=== PATIENT | female | born 1965 | race African-American/Black ===

== ENCOUNTER 2018-11-26 04:19 | Emergency (ER) | payer MEDICARE, MEDICAID ==
[~2018-11-26] VITALS: Ht 167.6 cm; Wt 79.4 kg
[2018-11-26 04:39] VITALS: BP 190/70
[2018-11-26] MEDS ORDERED: ERY-TAB500 MG PO (04:41)
== END 2018-11-26 04:48 | disposition home or self-care (01) ==
LOC: M.ERS 04:19
DX: K02.9 Dental caries, unspecified (principal)

== ENCOUNTER 2019-02-08 06:32 | Emergency (ER) | payer MEDICARE, MEDICAID ==
[~2019-02-08] VITALS: Ht 167.6 cm; Wt 77.1 kg
[~2019-02-08 06:32] MED LIST: ERY-TAB500 MG PO
[2019-02-08 07:07] LABS: URINE BILIRUBIN NEGATIVE (Negative); URINE BLOOD NEGATIVE (Negative); URINE CLARITY CLEAR; URINE COLOR DARK YELLOW; URINE GLUCOSE-RANDOM 3+ (Negative); URINE KETONES TRACE (Negative); URINE LEUKOCYTES-REFLEX NEGATIVE (Negative); URINE NITRITE-REFLEX NEGATIVE (Negative); URINE PROTEIN 1+ (Negative); URINE SPECIFIC GRAVITY 1.025 (1.005-1.030); URINE UROBILINOGEN 0.2 E.U./dl (0.2-1.0)
[2019-02-08] MEDS ORDERED: TORADOL 10 MG T10 MG PO (07:16)
[2019-02-08 07:50] VITALS: BP 182/99
== END 2019-02-08 07:50 | disposition home or self-care (01) ==
LOC: M.ERS 06:32
PROVIDERS: Emergency Medicine Emergency Medical Services
DX: R10.9 Unspecified abdominal pain (principal); I10 Essential (primary) hypertension; E11.9 Type 2 diabetes mellitus without complications; K21.9 Gastro-esophageal reflux disease without esophagitis; Z90.710 Acquired absence of both cervix and uterus

== ENCOUNTER 2019-05-07 22:28 | Emergency (ER) | payer MEDICARE ==
[~2019-05-07] VITALS: Ht 167.6 cm; Wt 72.6 kg
[~2019-05-07 22:28] MED LIST changes: +TORADOL 10 MG T10 MG PO
[2019-05-07 22:47] VITALS: BP 222/101
[2019-05-07] MEDS ORDERED: NEXIUM40 MG PO (22:52)
[2019-05-07] MEDS ORDERED: METFORMIN HCL500 MG PO (22:52)
[2019-05-07] MEDS ORDERED: HUMALOG100 UNIT/1 SUBQ (22:53)
[2019-05-07] MEDS ORDERED: BLOOD PRESSURE (22:54)
[2019-05-07] MEDS ORDERED: ACETAMINOPHEN-1 EAC1 PO (23:10)
[2019-05-07] MEDS ORDERED: CLEOCIN HCL150 MG PO (23:10)
[2019-05-07] MEDS ORDERED: PHENERGAN 25 MG25 M1 PO (23:11)
== END 2019-05-07 23:23 | disposition home or self-care (01) ==
LOC: M.ERS 22:28
DX: K08.89 Other specified disorders of teeth and supporting structures (principal); R22.0 Localized swelling, mass and lump, head; I10 Essential (primary) hypertension; E11.9 Type 2 diabetes mellitus without complications; K21.9 Gastro-esophageal reflux disease without esophagitis; F17.200 Nicotine dependence, unspecified, uncomplicated; Z90.711 Acquired absence of uterus with remaining cervical stump; Z79.4 Long term (current) use of insulin; Z88.2 Allergy status to sulfonamides; Z88.0 Allergy status to penicillin

== ENCOUNTER 2019-06-19 00:20 | Emergency (ER) | payer OTHER, MEDICARE ==
[~2019-06-19] VITALS: Ht 167.6 cm; Wt 74.8 kg
[~2019-06-19 00:20] MED LIST changes: +ACETAMINOPHEN-1 EAC1 PO; +BLOOD PRESSURE; +CLEOCIN HCL150 MG PO; +HUMALOG100 UNIT/1 SUBQ; +METFORMIN HCL500 MG PO; +NEXIUM40 MG PO; +PHENERGAN 25 MG25 M1 PO
[2019-06-19] MEDS ORDERED: IBUPROFEN 800800 MG PO (00:51)
[2019-06-19] MEDS ORDERED: FLEXERIL PO (00:51)
[2019-06-19] MEDS ORDERED: ULTRAM 50MG TAB50 MG PO (01:01)
[2019-06-19 01:04] VITALS: BP 181/95
== END 2019-06-19 01:04 | disposition home or self-care (01) ==
LOC: M.ERS 00:20
DX: S16.1XXA Strain of muscle, fascia and tendon at neck level, initial encounter (principal); I10 Essential (primary) hypertension; E11.9 Type 2 diabetes mellitus without complications; K21.9 Gastro-esophageal reflux disease without esophagitis; Z90.711 Acquired absence of uterus with remaining cervical stump; Z88.0 Allergy status to penicillin; Z88.2 Allergy status to sulfonamides; V89.2XXA Person injured in unspecified motor-vehicle accident, traffic, initial encounter; Y92.410 Unspecified street and highway as the place of occurrence of the external cause; Y93.89 Activity, other specified; Y99.8 Other external cause status

== ENCOUNTER 2019-11-03 06:53 | Inpatient (IN) | payer OTHER, MEDICAID ==
[~2019-11-03] VITALS: Ht 167.6 cm; Wt 77.1 kg
[~2019-11-03 06:53] MED LIST changes: +FLEXERIL PO; +IBUPROFEN 800800 MG PO; +ULTRAM 50MG TAB50 MG PO
[2019-11-03 07:12] VITALS: BP 212/83
--- NOTE | 2019-11-03 07:16 | NUR ---
DR. RICHARD NOTIFIED OF PT SYMPTOMS AT 0704.
[2019-11-03 07:40] LABS: ABSOLUTE BASOPHILS 0.1 thou/uL (0.0-0.2); ABSOLUTE EOSINOPHILS 0.1 thou/uL (0.0-0.7); ABSOLUTE LYMPHOCYTES 1.7 thou/uL (0.8-5.3); ABSOLUTE MONOCYTES 0.6 thou/uL (0.0-1.2); ABSOLUTE NEUTROPHILS 9.4 thou/uL (1.6-8.1); BASOPHILS 0.5 %; EOSINOPHILS 0.7 %; HEMATOCRIT 42.6 % (37.0-47.0); HEMOGLOBIN 14.8 gm/dL (12.0-15.0); LYMPHOCYTES 14.5 %; MCH 30.2 pg (26.0-34.0); MCHC 34.6 g/dL (28.0-37.0); MCV 87.4 fL (80.0-100.0); MONOCYTES 4.8 %; MPV 7.5 fl. (7.2-11.1); NUCLEATED RBCS 0 /100WBC; PLATELET COUNT* 385 thou/uL (150-400); POLYS 79.5 %; RBC 4.88 mil/uL (4.20-5.00); RDW-CV 13.5 % (10.5-14.5); WBC 11.9 thou/uL (4.0-11.0)
[2019-11-03 07:48] LABS: CALCIUM 8.8 mg/dL (8.5-10.1); CREATININE 0.7 mg/dL (0.6-1.3); POTASSIUM 3.7 mmol/L (3.5-5.1)
[2019-11-03 07:51] LABS: APTT 28.5 Seconds (25.0-31.3)
[2019-11-03 07:53] LABS: ALBUMIN 3.5 g/dL (3.4-5.0); TOTAL BILIRUBIN 0.3 mg/dL (<0.1-1.0); TOTAL PROTEIN 8.1 g/dL (6.4-8.2)
[2019-11-03 08:36] LABS: URINE BILIRUBIN NEGATIVE (Negative); URINE BLOOD NEGATIVE (Negative); URINE CLARITY CLEAR; URINE COLOR YELLOW; URINE GLUCOSE-RANDOM 2+ (Negative); URINE KETONES NEGATIVE (Negative); URINE LEUKOCYTES-REFLEX NEGATIVE (Negative); URINE PROTEIN NEGATIVE (Negative); URINE SPECIFIC GRAVITY 1.025 (1.005-1.030); URINE UROBILINOGEN 0.2 E.U./dl (0.2-1.0)
[2019-11-03 08:38] LABS: URINE NITRITE-REFLEX POSITIVE (Negative)
[2019-11-03 08:42] LABS: BACTERIA-REFLEX >30 Many /HPF (None Seen); CASTS None Seen /LPF (None Seen); CRYSTALS None Seen /LPF (None Seen); MUCUS None Seen strn/LPF (None Seen); SQUAMOUS 0-3 Few /LPF (0-3); URINE RBC 0-2 Rare /HPF (0-2); URINE WBC-REFLEX 6-15 Few /HPF (0-5)
[2019-11-03 11:38] VITALS: BP 161/80
--- NOTE | 2019-11-03 11:46 | EKG ---
[place] [address] ELECTROCARDIOGRAM REPORT Name: RENA PARISH Room: [place] [address] ADM IN .R.#: [id number] Admission: 11/03/19 Attend Phys: Devendra moore Sa Discharge: Date of : 67 Date of Service: 11/03/19 0724 Report #: [id number] THIS REPORT FOR: //name// [facility] ED Test Date: 2019-11-03 Test Time: 07:24:43 Pat Name: RENA PARISH Department: Room: [facility] Gender: F Vocational Trainer: : 1965 Requested By: Marianne Michel Order Number: [id number] MD: Mohit Hastings Measurements Intervals [place] Rate: 81 P: 48 ME: 142 QRS: 17 QRSD: 90 T: 67 QT: 403 QTc: 468 Interpretive Statements Sinus rhythm Probable LVH with secondary repol abnrm No previous ECG available for comparison Electronically Signed On 11-03-2019 11:45:51 TRAFFIC ENGINEERING TECHNICIAN by Mohit Hastings [email or web address] <ELECTRONICALLY SIGNED> By: Mohit Hastings MD, [facility] 11/03/19 1145 0724 0724 Mohit Hastings MD, [facility] /EPI
[2019-11-03 11:50] LABS: CHOLESTEROL 272 mg/dL (<200); HDL CHOLESTEROL 35 mg/dL (>40); LDL CHOLESTEROL 179 mg/dL (<100); TC:HDL 7.8 Ratio (Not establshd); TRIGLYCERIDE 290 mg/dL (<150); VLDL 58 mg/dL (<40)
[2019-11-03 11:51] LABS: SERUM ASSESSMENT Clear
[2019-11-03 16:01] VITALS: BP 169/72
[2019-11-03 16:31] VITALS: BP 154/100
--- NOTE | 2019-11-03 19:02 | NUR ---
PATIENT ADMITTED FROM ER VOICE SLURRED NOT MOVING RT SIDE NOW MOVES WITH PURPOSE. ASKING TO GET OUT OF BED. SWALLOW EVAL DONE. PT STILL SLURRING SPEACH. PROGRESSING.
--- NOTE | 2019-11-03 19:49 | 2DMMODE ---
[place] [address] 2 D/M-MODE ECHOCARDIOGRAM Name: RENA PARISH Room: [address] IN [facility]#: [id number] Admission: 11/03/19 Attend Phys: Devendra moore Sa Discharge: Date of : 67 Date of Service: 11/03/191947 Report #: [id number] THIS REPORT FOR: cc: Arvind Osullivan,Arvind Juarez,Jackson Mckeon MD [facility] ~ APPROVED REPORT Study performed: 11/03/2019 14:23:58 EXAM: Comprehensive 2D, Doppler, and color-flow Echocardiogram Patient Location: In-Patient Room #: 003 Status: routine BSA: 1.77 HR: 72 bpm BP: 174/73 mmHg Rhythm: NSR Other Information Study Quality: Good Indications CVA/TIA Echo Enhancing Agent Indication: Rule out Shunt Agent(s) / Amount(s) Used: Agitated Saline 10 cc 2D Dimensions IVSd: 11.65 (7-11mm) LVOT Diam: 20.08 (18-24mm) LVDd: 43.85 mm PWd: 9.62 (7-11mm) Ascending Ao: 35.69 (22-36mm) LVDs: 22.58 (25-40mm) Aortic Root: 35.84 mm Volumes Left Atrial Volume (Systole) LA ESV Index: 27.30 mL/m2 Aortic Valve AoV Peak Sudeep.: 1.12 m/s AO Peak Gr.: 5.06 mmHg LVOT Max P.68 mmHg AO Mean Gr.: 2.71 mmHg LVOT Mean P.53 [place] [address] 2 D/M-MODE ECHOCARDIOGRAM Name: RENA PARISH Room: [address] IN M.R.#: [id number] Admission: 11/03/19 Attend Phys: Devendra moore Sa Discharge: Date of : 67 Date of Service: 11/03/191947 Report #: [id number] LVOT Max V: 1.19 m/s AO V2 VTI: 23.02 cm LVOT Mean V: 0.73 m/s CHARLENE (VTI): 3.23 cm2 LVOT V1 VTI: 23.49 cm Mitral Valve E/A Ratio: 1.02 MV Decel. Time: 269.20 ms MV E Max Sudeep.: 0.77 m/s MV PHT: 78.07 ms MVA (PHT): 2.82 cm2 TDI E/Lateral E': 8.56 E/Medial E': 12.83 Medial E' Sudeep.: 0.06 m/s Lateral E' Sudeep.: 0.09 m/s Left Ventricle The left ventricle is normal size. There is normal LV segmental wall motion. There is normal left ventricular wall thickness. Left ventricular systolic function is normal. LVEF is 65-70%. Transmitral Doppler flow pattern suggests impaired LV relaxation. Right Ventricle The right ventricle is normal size. The right ventricular systolic function is normal. Atria The left atrium size is normal. The interatrial septum is intact with no evidence for an atrial septal defect. The right atrium size is normal. Aortic Valve The aortic valve is normal in structure. No aortic regurgitation is present. There is no aortic valvular stenosis. Mitral Valve The mitral valve is normal in structure. Trace mitral regurgitation. No evidence of mitral valve stenosis. Tricuspid Valve The tricuspid valve is normal in structure. Trace tricuspid regurgitation. Unable to assess PA pressure. Pulmonic Valve The pulmonary valve is normal in structure. There is no pulmonic [place] [address] 2 D/M-MODE ECHOCARDIOGRAM Name: RENA PARISH Room: [address] IN ..#: [id number] Admission: 11/03/19 Attend Phys: Devendra moore Sa Discharge: Date of : 67 Date of Service: 11/03/19 194 Report #: [id number] Great Vessels The aortic root is normal in size. IVC is normal in size and collapses >50% with inspiration. Pericardium There is no pericardial effusion. <Conclusion> The left ventricle is normal size. There is normal left ventricular wall thickness. Left ventricular systolic function is normal. LVEF is 65-70%. Transmitral Doppler flow pattern suggests impaired LV relaxation. The interatrial septum is intact with no evidence for an atrial septal defect. Trace mitral regurgitation. Trace tricuspid regurgitation. <ELECTRONICALLY SIGNED> By: Jackson Kaminski MD, FACC 11/03/191947 47 47 Jackson Kaminski MD, FACC /INF
[2019-11-04 02:07] LABS: GLYCOHEMOGLOBIN (HGB A1C) 10.6 % (4.8-5.6)
--- NOTE | 2019-11-04 06:49 | NUR ---
PROGRESSING TOWARDS GOALS, AWAKE, ALERT, AND CONVERSATIVE THIS AM, FORGETFUL EASILY REORIENTED TO PLACE, AND SITUATION, REQUESTING AM MEAL, REMAINS NPO PER ORDER, SITTING UP SIDE OF BED WITHOUT ASSIST, BED ALARM ON FOR SAFETY, NO ADVERSE EFFECTS IV ABT'S NOTED, FSBS N4PFBDE PER ORDER, X HUMALOG 3UNITS SQ PER ORDER LOW DOSE SLIDING SCALE REGIME, RESP EVEN AND NONLAOBRED, SAO2 =>96% RA, NSR TRACING SPRINKLER TENDER, UPATED PLAN OF CARE VIA TELEPHONE, DENIES PAIN OR DISCOMFORT, INSTRUCTED USE OF CALL LIGHT FOR NEEDS, WANTS, OOB, OR ANY CHANGE IN CONDITION, USING TV REMOTE WITHOUT DIFFICULTY. BED REMAINS IN LOW AND LOCKED POSITON, SAFETY MAINTAINED.
[2019-11-04 08:39] LABS: ABSOLUTE EOSINOPHILS 0.2 thou/uL (0.0-0.7); ABSOLUTE LYMPHOCYTES 3.1 thou/uL (0.8-5.3); ABSOLUTE MONOCYTES 0.5 thou/uL (0.0-1.2); ABSOLUTE NEUTROPHILS 3.6 thou/uL (1.6-8.1); BASOPHILS 0.6 %; EOSINOPHILS 2.6 %; HEMATOCRIT 38.3 % (37.0-47.0); HEMOGLOBIN 13.1 gm/dL (12.0-15.0); MCH 29.9 pg (26.0-34.0); MCHC 34.1 g/dL (28.0-37.0); MCV 87.7 fL (80.0-100.0); MONOCYTES 6.4 %; MPV 7.8 fl. (7.2-11.1); NUCLEATED RBCS 0 /100WBC; PLATELET COUNT* 345 thou/uL (150-400); POLYS 48.4 %; RBC 4.37 mil/uL (4.20-5.00); RDW-CV 13.4 % (10.5-14.5); WBC 7.4 thou/uL (4.0-11.0)
[2019-11-04 08:45] LABS: CALCIUM 8.3 mg/dL (8.5-10.1); CREATININE 0.6 mg/dL (0.6-1.3); POTASSIUM 3.3 mmol/L (3.5-5.1)
--- NOTE | 2019-11-04 11:16 | NUR ---
CM ASSESSMENT: VISITED WITH PT IN ROOM. PARENTS ARE PRESENT. PT LIVES WITH HER EX AND HAS RECENTLY MOVED BACK TO [facility]. PT IS NORMALLY INDEPENDENT WITH ADLS AND DENIES DEFICITS FROM PREVIOUS CVA. HER MOTHER STATES THAT SHE IS SOMETIMES FORGETFUL. PT HAS REHAB CONSULT TODAY. CM WILL CONTINUE TO FOLLOW
--- NOTE | 2019-11-04 13:22 | NUR ---
PATIENT UP AT BEDSIDE TAKING PO WELL. SLIGHT WEAKNESS NOTED. VERY IMPULSIVE. DENIES DISTRESS.
[2019-11-04 14:39] VITALS: BP 168/80
[2019-11-04 15:54] VITALS: BP 197/77
[2019-11-04 20:51] VITALS: BP 158/74
[2019-11-04] MEDS ORDERED: ALPRAZOLAM 0.0.25 M1 PO (21:10)
[2019-11-04 23:28] VITALS: BP 168/85
[2019-11-05 04:58] VITALS: BP 185/92
--- NOTE | 2019-11-05 05:13 | NUR ---
PT. PROGRESSING TOWARDS GOALS. IMPULSIVE, BED ALARM ARMED. UP TO BSC STAND BY ASSIST. ALERT AND ORIENTED.
--- NOTE | 2019-11-05 09:13 | NUR ---
I have reviewed the documentation by SIRIA STERN from 11/04/19 to 11/05/19 and I concur with it. LESLIE MALDONADO
--- NOTE | 2019-11-05 10:15 | NUR ---
INT ROUNDS: PT IS TELE STATUS, ANTICIPATE MOVE TO TELE FLOOR LATER. REHAB CONSULT IN PLACE AND WORKING WITH THERAPY. WILL FOLLOW
[2019-11-05 10:57] VITALS: BP 147/74
[2019-11-05 12:32] LABS: AMP/METHAMP Negative (Negative); BARBITURATES Negative (Negative); BENZODIAZEPINES Negative (Negative); COCAINE Negative (Negative); METHADONE Negative (Negative); OPIATES Negative (Negative); PCP Negative (Negative); THC Negative (Negative)
[2019-11-05 18:13] VITALS: BP 169/79
[2019-11-05 19:25] VITALS: BP 153/64
[2019-11-06 03:57] VITALS: BP 160/83
[2019-11-06 04:08] LABS: HEMOGLOBIN 13.6 gm/dL (12.0-15.0); MCH 29.7 pg (26.0-34.0); MCHC 33.9 g/dL (28.0-37.0); MCV 87.7 fL (80.0-100.0); MPV 7.5 fl. (7.2-11.1); RBC 4.56 mil/uL (4.20-5.00); RDW-CV 13.4 % (10.5-14.5); WBC 6.8 thou/uL (4.0-11.0)
[2019-11-06 04:10] LABS: CALCIUM 8.7 mg/dL (8.5-10.1); CREATININE 0.7 mg/dL (0.6-1.3); POTASSIUM 3.6 mmol/L (3.5-5.1)
[2019-11-06] MEDS ORDERED: ASPIRIN325 PO (07:04)
[2019-11-06] MEDS ORDERED: LANTUS SUBQ (07:04)
[2019-11-06] MEDS ORDERED: LIPITOR 40 MG T40 M1 PO (07:04)
[2019-11-06] MEDS ORDERED: HUMALOG100 UNIT/1 SUBQ (07:04)
[2019-11-06] MEDS ORDERED: COZAAR 50 MG TA50 M1 PO (07:04)
[2019-11-06 07:35] VITALS: BP 170/77
--- NOTE | 2019-11-06 08:24 | NUR ---
ORDERS NOTED FOR DC TO REHAB VS SNF. REHAB CONSULT WAS PLACED YESTERDAY WITH CALL TO [facility]. NO CONSULT DICATED YET. MESSAGE TO [facility] TO CHECK ON STATUS. WILL NEED INSURANCE AUTH PRIOR TO EITHER TYPE OF PLACEMENT
[2019-11-06 11:03] VITALS: BP 160/83
[2019-11-06 11:12] VITALS: BP 160/83
--- NOTE | 2019-11-06 12:07 | NUR ---
THIS HYDRAULIC HAMMER OPERATOR ASSUMED CARE OF PT AT 0700 PT PROGRESSED TOWARD GOALS AND DISCHARGED AT 1155 F/U APPT SCHEDULED 11/19/[address] ZABALA PT SENT HOME WITH TELEY RECORDER X 30 DAYS HAD INSTRUCTIONS AND CARDIO NUMBER FOR ANY QUESTIONS ALL BELONGINGS PACKED AND SENT WITH PT INCLUDING SCRIPTS EDUCATION AND SPOKE WITH HOME HEALTH LEFT VIA OWN TRANSPORTATION WITH SPOUSE PT REFUSED WHEELCHAIR AND WANTED TO WALK OUT ACCOMPANIED BY NURSING
--- NOTE | 2019-11-06 14:58 | NUR ---
I have reviewed the documentation by SIRIA STERN from 11/06/19 to 11/06/19 and I concur with it. LESLIE MALDONADO
== END 2019-11-06 11:55 | disposition home health service (06) | DRG 65 ==
LOC: M.ERS 06:53 → M.ICU 09:30 → M.TBA-ER 09:30 → M.ICU 12:00
PROVIDERS: Personal Emergency Response Attendant; Psychiatry & Neurology Neurology; ADMIT Family Medicine
DX: I63.9 Cerebral infarction, unspecified (principal); G81.91 Hemiplegia, unspecified affecting right dominant side; N39.0 Urinary tract infection, site not specified; I10 Essential (primary) hypertension; E11.65 Type 2 diabetes mellitus with hyperglycemia; I16.0 Hypertensive urgency; E78.5 Hyperlipidemia, unspecified; R47.81 Slurred speech; F41.9 Anxiety disorder, unspecified; K21.9 Gastro-esophageal reflux disease without esophagitis; Z90.711 Acquired absence of uterus with remaining cervical stump; Z79.899 Other long term (current) drug therapy; Z79.4 Long term (current) use of insulin; Z88.1 Allergy status to other antibiotic agents; Z88.0 Allergy status to penicillin; Z88.2 Allergy status to sulfonamides; Z79.84 Long term (current) use of oral hypoglycemic drugs; Z91.14 Patient's other noncompliance with medication regimen; Z79.82 Long term (current) use of aspirin; Z86.73 Personal history of transient ischemic attack (TIA), and cerebral infarction without residual deficits; Z72.0 Tobacco use; Z82.3 Family history of stroke; Z82.49 Family history of ischemic heart disease and other diseases of the circulatory system

== ENCOUNTER 2021-07-01 16:19 | Emergency (ER) | payer OTHER, MEDICAID ==
[~2021-07-01] VITALS: Ht 167.6 cm; Wt 83.0 kg
--- NOTE | ~2021-07-01 | EMS ---
[address] [address] EMS Patient Care Report Name: RENA PARISH [id number] Admission: 07/01/21 Attend Phys: Discharge: 07/01/21 Date of : 67 Report #: [id number] THIS REPORT FOR: //name// Report Transmitted: 07/01/2021 20:50 EMS Care Summary LEELA DAVENPORT Incident [id number] @ 07/01/2021 15:42 Incident Location [facility] [place] [address] Patient RENA PARISH Female, 55 Years 1965 Patient Address [address] [place], [place] [id number] Patient History Cerebral infarction, unspecified,Hypertension (HTN),,Endocrine Condition - Other,Gastro-Esophageal Reflux Disease (GERD), Patient Allergies , Patient Medications insulin, isophane, Hydrochlorothiazide / Lisinopril, Lisinopril, Atorvastatin, Pantoprazole, Chief Complaint Dizziness Disposition Transported No Lights/Vivian Dispatch Reason Sick Person Transported To [facility] Narrative [facility] WAS DISPATCHED TO A FEMALE WITH SHORTNESS OF BREATH, VOMITING, LIGHTHEADEDNESS, AND WEAKNESS. ON SCENE THE PATIENT WAS JUST INSIDE OF THE [address] [address] EMS Patient Care Report Name: RENA PARISH [facility] [id number] Admission: 07/01/21 Attend Phys: Discharge: 07/01/21 Date of : 67 Report #: [id number] WAITING ROOM ON A BENCH SEAT, THERE WAS EMESIS NOTED ON THE GROUND. PATIENT WAS ALERT AND ORIENTED SPEAKING WITH THE FIREFIGHTERS. PATIENT REPORTED THAT HE WAS WALKING WHEN SHE STARTED TO GET SUPER LIGHTHEADED. patient WAS FORCED TO SIT DOWN BY THE MAN THAT SHE WAS WITH ON THEIR DATE. PATIENT THREW UP AND THEY CALLED 911. THE PATIENTS VITALS WERE ASSESSED. FIRE FIGHTERS WERE UNABLE TO GET A BLOOD PRESSURE. THE PATIENT WAS HELPED TO STAND UP AND WALK A FEW STEPS TO THE COT. patient TURNED AND SAT DOWN WITH NO ISSUES. patients WAS BUCKLED IN AND TAKEN TO THE AMBULANCE. PATIENT REQUESTED TO GO TO [facility]. patients DATE WAS NOTIFIED OF THE PATIENTS DECISION. THE PATIENT WHILE IN ROUTE HAD VITALS AND 12-LEAD TAKEN. AN IV WAS OBTAINED. PATIENT WAS OFFERED ZOFRAN HOWEVER SHE STATED THAT IT USUAL JUST MAKES IT A LOT WORSE, NO ZOFRAN WAS GIVEN. FLUIDS WERE ADMINISTERED. PATIENT DENIED ANY CHEST PAIN OR SHORTNESS OF BREATH. PATIENT WAS ALERT AND oriented. PATIENT WAS ABLE TO GIVE ALL MEDICAL AND DEMOGRAPHIC INFORMATION. PATIENT WAS TRANSPORTED IN POSITION OF COMFORT. THERE WAS NO CHANGE IN PATIENT CONDITION. PATIENT WAS ASKED QUESTIONS ABOUT HER 12-LEAD AND HER VITALS. PATIENT WAS ALERT AND ORIENTED WITH NO CHANGE IN PATIENT CONDITION. PATIENT WAS ABLE TO SIGN FOR SELF. AT THE HOSPITAL THE patients WAS TAKEN TO ROOM 11. THERE THE PATIENT WAS ABLE TO GET UP FROM THE COT AND WALK TO THE BED WITH assistance FROM HER CANE. PATIENT SAT ON THE BED. PATIENTS INFORMATION WAS GIVEN TO A NURSE. THE receiving NURSE OBTAINED PATIENT REPORT. THE NURSE SIGNED FOR PATIENT CARE. A FACESHEET WAS OBTAINED AND EMS DEPARTED THE SCENE, --END-- Initial Vitals @15:51SpO2: 97, @15:52SpO2: 98, @15:52SpO2: 98, @15:55SpO2: 98, @15:57SpO2: 99, @15:57SpO2: 98, @16:02SpO2: 97, @16:05SpO2: 100, @16:07SpO2: 96, @16:12SpO2: 99, @15:55 @15:56 @16:03 @15:51P: 86,R: 16,BP: 99/76, @15:57P: 95,R: 16,BP: 125/67, @16:05P: 90,R: 16,BP: 138/77, @16:16P: 80,R: 16,BP: 135/105, @15:51GCS: 15, @15:57GCS: 15, @16:05GCS: 15, @16:16GCS: 15, @16:11 [place] [address] EMS Patient Care Report Name: RENA PARISH [facility] [id number] Admission: 07/01/21 Attend Phys: Discharge: 07/01/21 Date of : 67 Report #: [id number] @15:55Glucose: 211, Assessments @15:47MENTAL:SKIN:HEENT:LUNG SOUNDS:ABDOMEN:PELVIS//GI:EXTREMITIES:PULSE:NEURO: Impression Syncope / Fainting Procedures @15:58Other - Medication - 250.000 Milliliters (ml) - Intravenous (IV)Response: Unchanged@15:55 cc () Site: Antecubital-LeftResponse: UnchangedSucceeded@15:553-Lead ECGResponse: UnchangedSucceeded@15:563-Lead ECGResponse: UnchangedSucceeded@16:0312-Lead ECGResponse: UnchangedSucceeded Timeline 15:30,Call Received 15:42,Dispatch Notified 15:42,Psap Call 15:42,Dispatched 15:42,En Route 15:46,On Scene 15:47,At Patient 15:51,BP: / M,PULSE: ,RR: R,SPO2: 97 Ox,ETCO2: ,BG: ,PAIN: ,GCS: , 15:51,BP: 99/76 M,PULSE: 86,RR: 16 R,SPO2: Ox,ETCO2: ,BG: ,PAIN: ,GCS: , 15:51,BP: / M,PULSE: ,RR: R,SPO2: Ox,ETCO2: ,BG: ,PAIN: ,GCS: 15, 15:52,BP: / M,PULSE: ,RR: R,SPO2: 98 Ox,ETCO2: ,BG: ,PAIN: ,GCS: , 15:52,BP: / M,PULSE: ,RR: R,SPO2: 98 Ox,ETCO2: ,BG: ,PAIN: ,GCS: , 15:55, cc Site: Antecubital-Left,Response: UnchangedSucceeded, 15:55,3-Lead ECG,Response: UnchangedSucceeded, 15:55,BP: / M,PULSE: ,RR: R,SPO2: 98 Ox,ETCO2: ,BG: ,PAIN: ,GCS: , 15:55,BP: / M,PULSE: ,RR: R,SPO2: Ox,ETCO2: ,BG: ,PAIN: ,GCS: , 15:55,BP: / M,PULSE: ,RR: R,SPO2: Ox,ETCO2: ,B,PAIN: ,GCS: , 15:56,3-Lead ECG,Response: UnchangedSucceeded, 15:56,BP: / M,PULSE: ,RR: R,SPO2: Ox,ETCO2: ,BG: ,PAIN: ,GCS: , 15:57,BP: / M,PULSE: ,RR: R,SPO2: 99 Ox,ETCO2: ,BG: ,PAIN: ,GCS: , 15:57,BP: / M,PULSE: ,RR: R,SPO2: 98 Ox,ETCO2: ,BG: ,PAIN: ,GCS: , 15:57,BP: 125/67 M,PULSE: 95,RR: 16 R,SPO2: Ox,ETCO2: ,BG: ,PAIN: ,GCS: , 15:57,BP: / M,PULSE: ,RR: R,SPO2: Ox,ETCO2: ,BG: ,PAIN: ,GCS: 15, 15:58,Other - Medication - 250.000 Milliliters (ml) - Intravenous (IV),Response: Unchanged 16:00,Depart Scene 16:02,BP: / M,PULSE: ,RR: R,SPO2: 97 Ox,ETCO2: ,BG: ,PAIN: ,GCS: , 16:03,12-Lead ECG,Response: UnchangedSucceeded, 16:03,BP: / M,PULSE: ,RR: R,SPO2: Ox,ETCO2: ,BG: ,PAIN: ,GCS: , 16:05,BP: / M,PULSE: ,RR: R,SPO2: 100 Ox,ETCO2: ,BG: ,PAIN: ,GCS: , [place] [address] EMS Patient Care Report Name: RENA PARISH [facility] [id number] Admission: 07/01/21 Attend Phys: Discharge: 07/01/21 Date of : 67 Report #: [id number] 16:05,BP: 138/77 M,PULSE: 90,RR: 16 R,SPO2: Ox,ETCO2: ,BG: ,PAIN: ,GCS: , 16:05,BP: / M,PULSE: ,RR: R,SPO2: Ox,ETCO2: ,BG: ,PAIN: ,GCS: 15, 16:07,BP: / M,PULSE: ,RR: R,SPO2: 96 Ox,ETCO2: ,BG: ,PAIN: ,GCS: , 16:11,BP: / M,PULSE: ,RR: R,SPO2: Ox,ETCO2: ,BG: ,PAIN: ,GCS: , 16:12,BP: / M,PULSE: ,RR: R,SPO2: 99 Ox,ETCO2: ,BG: ,PAIN: ,GCS: , 16:16,BP: 135/105 M,PULSE: 80,RR: 16 R,SPO2: Ox,ETCO2: ,BG: ,PAIN: ,GCS: , 16:16,BP: / M,PULSE: ,RR: R,SPO2: Ox,ETCO2: ,BG: ,PAIN: ,GCS: 15, 16:16,At Destination 16:27,Call Closed Disclaimer v1.1 Copyright 2020 [employer] This EMS Care Summary contains data elements from the applicable legal record (which may be displayed differently). It is designed to provide pertinent information for the following purposes: continuity of care, clinical quality, and state data reporting. The complete legal record is available to ED staff and administrators of the receiving hospital in [employer]'s Patient Tracker. All data is provided "as is."
[~2021-07-01 16:19] MED LIST changes: +ALPRAZOLAM 0.0.25 M1 PO; +ASPIRIN325 PO; +COZAAR 50 MG TA50 M1 PO; +LANTUS SUBQ; +LIPITOR 40 MG T40 M1 PO
[2021-07-01] MEDS ORDERED: LISINOPRIL10 MG PO (16:26)
[2021-07-01] MEDS ORDERED: HYDROCHLOROTH12.5 M2 PO (16:27)
[2021-07-01 17:00] LABS: ABSOLUTE BASOPHILS 0.1 thou/uL (0.0-0.2); ABSOLUTE EOSINOPHILS 0.1 thou/uL (0.0-0.7); ABSOLUTE LYMPHOCYTES 2.1 thou/uL (0.8-5.3); ABSOLUTE MONOCYTES 0.6 thou/uL (0.0-1.2); ABSOLUTE NEUTROPHILS 6.5 thou/uL (1.6-8.1); BASOPHILS 1.4 %; EOSINOPHILS 1.2 %; HEMATOCRIT 42.2 % (37.0-47.0); HEMOGLOBIN 14.3 gm/dL (12.0-15.0); LYMPHOCYTES 21.8 %; MCH 29.4 pg (26.0-34.0); MCHC 33.9 g/dL (28.0-37.0); MCV 86.6 fL (80.0-100.0); MONOCYTES 6.5 %; MPV 6.9 fl. (7.2-11.1); NUCLEATED RBCS 0 /100WBC; PLATELET COUNT* 437 thou/uL (150-400); POLYS 69.1 %; RBC 4.88 mil/uL (4.20-5.00); RDW-CV 14.1 % (10.5-14.5); WBC 9.4 thou/uL (4.0-11.0)
[2021-07-01 17:08] LABS: CALCIUM 9.3 mg/dL (8.5-10.1); CREATININE 0.9 mg/dL (0.6-1.3)
[2021-07-01 17:18] LABS: ALBUMIN 3.4 g/dL (3.4-5.0); TOTAL BILIRUBIN 0.3 mg/dL (<0.1-1.0); TOTAL PROTEIN 8.4 g/dL (6.4-8.2)
[2021-07-01 18:27] LABS: URINE BILIRUBIN NEGATIVE (Negative); URINE BLOOD NEGATIVE (Negative); URINE CLARITY CLEAR; URINE COLOR YELLOW; URINE GLUCOSE-RANDOM NEGATIVE (Negative); URINE KETONES NEGATIVE (Negative); URINE LEUKOCYTES-REFLEX NEGATIVE (Negative); URINE PROTEIN NEGATIVE (Negative); URINE UROBILINOGEN 0.2 E.U./dl (0.2-1.0)
[2021-07-01 18:28] LABS: URINE NITRITE-REFLEX POSITIVE (Negative)
[2021-07-01 18:33] LABS: CRYSTALS None Seen /LPF (None Seen); HYALINE CASTS 4-10 Moderate /LPF (None Seen); MUCUS None Seen strn/LPF (None Seen); SQUAMOUS 0-3 Few /LPF (0-3)
[2021-07-01 18:34] LABS: BACTERIA-REFLEX >30 Many /HPF (None Seen); URINE RBC None Seen /HPF (0-2); URINE WBC-REFLEX 0-5 Rare /HPF (0-5)
[2021-07-01] MEDS ORDERED: DOXYCYCLINE 10100 M2 PO (18:54)
[2021-07-01 20:10] VITALS: BP 116/64
--- NOTE | 2021-07-02 10:22 | EKG ---
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: MEDIC STUDENT : 1965 Requested By: Dusty Dewitt Order Number: [id number] MD: Roddy Miller Measurements Intervals [place] Rate: 84 P: 33 GA: 143 QRS: 6 QRSD: 96 T: 129 QT: 387 QTc: 458 Interpretive Statements Sinus rhythm Probable left atrial enlargement LVH with secondary repolarization abnormality Compared to ECG 11/03/2019 07:24:43 No significant changes Electronically Signed On 07-02-2021 10:22:34 CDT by Roddy Miller [email or web address] <ELECTRONICALLY SIGNED> By: Roddy Miller MD, FAC 07/02/21 1022 1628 1628 Roddy Miller MD, [facility] /EPI
== END 2021-07-01 20:12 | disposition home or self-care (01) ==
LOC: M.ERS 16:19
PROVIDERS: Emergency Medicine Emergency Medical Services
DX: N39.0 Urinary tract infection, site not specified (principal); R55 Syncope and collapse; R11.2 Nausea with vomiting, unspecified; R30.0 Dysuria; R31.9 Hematuria, unspecified; R42 Dizziness and giddiness; E11.9 Type 2 diabetes mellitus without complications; I10 Essential (primary) hypertension; K21.9 Gastro-esophageal reflux disease without esophagitis; F17.210 Nicotine dependence, cigarettes, uncomplicated; Z90.711 Acquired absence of uterus with remaining cervical stump; Z86.73 Personal history of transient ischemic attack (TIA), and cerebral infarction without residual deficits; Z79.899 Other long term (current) drug therapy; Z79.82 Long term (current) use of aspirin; Z88.0 Allergy status to penicillin; Z88.2 Allergy status to sulfonamides

== ENCOUNTER 2021-10-05 16:14 | Emergency (ER) | payer OTHER, MEDICAID ==
[~2021-10-05] VITALS: Ht 167.6 cm; Wt 90.7 kg
[~2021-10-05 16:14] MED LIST changes: +DOXYCYCLINE 10100 M2 PO; +HYDROCHLOROTH12.5 M2 PO; +LISINOPRIL10 MG PO
[2021-10-05 17:10] VITALS: BP 209/88
== END 2021-10-05 17:11 | disposition home or self-care (01) ==
LOC: M.ERS 16:14
DX: I10 Essential (primary) hypertension (principal); Z53.21 Procedure and treatment not carried out due to patient leaving prior to being seen by health care provider